=== PATIENT | male | born 1975 | race Caucasian/White ===

== ENCOUNTER 2019-07-02 08:22 | Outpatient (CLI) | payer OTHER ==
--- NOTE | 2019-07-02 11:17 | MRI ---
MRI CERVICAL SPINE: Date: 07/02/2019 INDICATION: Cervical pain. FINDINGS: Cervical vertebra maintain normal height and alignment. Mild degenerative changes are present. Mild a nterior spurring. Mild loss of disc space at C5-6. The other disc spaces are relatively well preserv ed. C2-3: No significant disc bulge or spondylosis. C3-4: Mild disc bulge and spondylosis efface the anterior subarachnoid space. Asymmetric disc bulge and uncinate hypertrophy on the right produce right foraminal stenosis. C4-5: Posterior disc bulge and spondylosis abut the anterior cord. There is asymmetric spondylosis p aracentrally on the left which indents the anterior cord on the left and produces left foraminal sten osis. Uncinate hypertrophy also results in right foraminal stenosis at this level. C5-6: Posterior disc bulge and spondylosis efface the anterior subarachnoid space. Bilateral foramin al narrowing due to facet and uncinate hypertrophy, more pronounced on the right. C6-7: Disc bulge and spondylosis efface the anterior subarachnoid space. Uncinate hypertrophy result s in mild bilateral foraminal narrowing. The cervical cord signal is normally preserved. IMPRESSION: Multilevel degenerative changes. Posterior disc bulge and spondylosis most pronounced at the C3-4, C4 -5, C5-6, and C6-7 levels as detailed above. POS: [facility]
== END 2019-07-02 08:23 | disposition home or self-care (01) ==
LOC: BICMRI 08:22
PROVIDERS: ATTEND Specialist
DX: M54.2 Cervicalgia (principal); M47.812 Spondylosis without myelopathy or radiculopathy, cervical region; M50.81 Other cervical disc disorders, high cervical region
CPT/HCPCS: 72141

== ENCOUNTER 2019-08-25 11:16 | Outpatient (CLI) | payer OTHER ==
--- NOTE | 2019-08-25 13:53 | RAD ---
CERVICAL SPINE: 08/25/19 Five views. INDICATIONS: Neck pain. Cervical vertebrae maintain height and alignment. Multilevel degenerative change noted. Loss of disc space at C3-4, C4-5, C5-6 and C6-7. Mild to moderate osteophytes from these levels with posterior spo ndylosis at C3-4, C4-5, C5-6 and C6-7. No significant listhesis see with flexion or extension. IMPRESSION: Multilevel degenerative disc changes as described. Findings correlate to the recent MRI of 07/02/19. POS: [facility]
== END 2019-08-25 11:17 | disposition home or self-care (01) ==
LOC: BICRAD 11:16
PROVIDERS: ATTEND Neurological Surgery
DX: M50.10 Cervical disc disorder with radiculopathy, unspecified cervical region (principal)
CPT/HCPCS: 72050

== ENCOUNTER 2019-09-21 08:18 | Outpatient (CLI) | payer OTHER ==
--- NOTE | 2019-09-21 11:59 | MRI ---
MRI OF THE LEFT SHOULDER WITHOUT CONTRAST: INDICATION: History of left rotator cuff tear. COMPARISON: Left humerous radiographs dated 08/26/2019. FINDINGS: There is a massive rotator cuff tear involving the supraspinatus and infraspinatus with retraction o f the supraspinatus and infraspinatus tendons to the level of the glenohumeral joint. There is promi nent muscular edema involving the supraspinatus and infraspinatus as well as the cranial subscapulari s. There is a tear component involving the cranial aspect of the subscapularis and rotator interval from the supraspinatus with medial subluxation of the long head of the biceps tendon. There is a par tial-thickness split tear involving the intraarticular long head of the biceps tendon with reconstitu tion by the level of the mid to distal bicipital groove. The biceps anchor complex appears intact. The superior glenoid labrum appears intact. The anterior inferior glenohumeral labral ligamentous co mplex appears intact. Glenohumeral articular surface is normal-appearing. There is a degenerative s ubchondral cyst-like abnormality involving the bare are of the superior humeral head. There is mild AC joint osteoarthrosis with mild encroachment of the subjacent supraspinatus. No enlarged lymph nod es are evident. There is a type II acromion. No os acromiale is evident. IMPRESSION: 1. Massive rotator cuff tear with supraspinatus and infraspinatus tendon retraction of the glenohume ral joint. There is also some tear extension into the rotator interval and cranial aspect of the sub scapularis inducing medial subluxation of the long head of the biceps tendon. There is a split tear of the long head of the biceps tendon along its intraarticular and proximal bicipital groove course. 2. No evidence to suggest superior glenoid labral or biceps anchor tear. 3. Mild acromioclavicular joint osteoarthrosis with mild encroachment. 4. Mild likely posttraumatic myositis of the cranial subscapularis, supraspinatus, and infraspinatus . Component of acute denervation is not excluded. POS: [facility]
== END 2019-09-21 08:19 | disposition home or self-care (01) ==
LOC: BICMRI 08:18
PROVIDERS: ATTEND Orthopaedic Surgery
DX: M75.102 Unspecified rotator cuff tear or rupture of left shoulder, not specified as traumatic (principal); M19.012 Primary osteoarthritis, left shoulder

== ENCOUNTER 2019-09-27 05:41 | Outpatient (CLI) | payer OTHER ==
[2019-09-27 12:14] LABS: #Eosinphils 0.2 thou/uL (0.0-0.7); #Lymphocytes 2.1 thou/uL (1.20-3.40); #Monocytes 0.7 thou/uL (0.11-0.59); #Neutrophils 5.1 thou/uL (1.40-6.50); %Basophils 0.5 % (0.0-1.0); %Eosinophils 2.2 % (0.0-10.0); %Lymphocytes 25.8 % (21.0-51.0); %Monocytes 8.2 % (0.0-10.0); %Neutrophils 63.3 % (42.0-75.0); Hemoglobin 14.9 g/dL (14.0-18.0); Mean Corpuscular HGB CONC 33.3 g/dL (32.0-36.0); Mean Corpuscular Hemoglobin 29.5 pg (27.0-31.0); Mean Corpuscular Volume 88.5 fL (78.0-98.0); Mean Platelet Volume 7.6 fL (7.4-10.4); Platelet Count 218 thou/uL (130-400); RBC Distribution Width 11.7 % (11.5-14.5); Red Blood Cell (RBC) Count 5.06 mill/uL (4.70-6.10); White Blood Cell (WBC) Count 8.1 thou/uL (4.8-10.8)
[2019-09-27 12:36] LABS: Anion Gap 11 mmol/L (10-20); BUN (Urea Nitrogen) 16 mg/dL (8.9-20.6); Calc. Creatinine Clearance 0 mL/min (70-130); Carbon Dioxide 24 mmol/L (22-29); Chloride 106 mmol/L (98-107); Estimated GFR-MDRD Greater than 90; Glucose 97 mg/dL (70-105); Potassium 4.8 mmol/L (3.5-5.1); Sodium 136 mmol/L (136-145)
[2019-09-28 13:09] LABS: SARS-CoV-2 MS2 Positive; SARS-CoV-2 N Gene Negative; SARS-CoV-2 S Gene Negative; SARS-CoV-2 orf1ab Negative
== END 2019-09-27 05:42 | disposition home or self-care (01) ==
LOC: LABBT 05:41
PROVIDERS: ATTEND Orthopaedic Surgery
DX: Z01.812 Encounter for preprocedural laboratory examination (principal); Z11.59 Encounter for screening for other viral diseases; M75.122 Complete rotator cuff tear or rupture of left shoulder, not specified as traumatic
CPT/HCPCS: 80048; 85025; 87635; U0003

== ENCOUNTER 2019-09-30 05:42 | Day surgery (SDC) | payer OTHER ==
[2019-09-24 09:33] VITALS: BMI 31.1
[2019-09-30] MEDS ORDERED: Midazolam HCl 2 mg/2 ml Vial ONE (06:46)
[2019-09-30] MEDS ORDERED: Fentanyl 100 MCG/2 ML VIAL ONE ×2 (06:46→07:13)
[2019-09-30] MEDS ORDERED: Ondansetron PF 4 MG/2 ML Vial IVP PRN (07:35)
[2019-09-30] MEDS ORDERED: HYDROcodone/Acetaminophen 5/325 mg Tablet PO PRN ×2 (07:35)
[2019-09-30] MEDS ORDERED: Zolpidem Tartrate 5 MG TAB PO PRN (07:35)
[2019-09-30] MEDS ORDERED: Promethazine HCl 25 MG/ML VIAL IM PRN (07:35)
[2019-09-30] MEDS ORDERED: Ropivacaine 0.2% 550 ML 550 ML NERVE BLCK SCH (07:35)
[2019-09-30] MEDS ORDERED: traMADol HCl 50 MG TAB PO PRN ×2 (07:35)
[2019-09-30] MEDS ORDERED: Fentanyl 100 MCG/2 ML VIAL SLOW IVP PRN (07:35)
--- NOTE | 2019-09-30 10:41 | OP ---
DATE OF PROCEDURE: 09/30/2019 This is Arya Moreno PA-C dictating a report for Douglas Maza MD. PREOPERATIVE DIAGNOSIS: Left shoulder massive retracted rotator cuff tear with biceps tendinosis and instability. POSTOPERATIVE DIAGNOSIS: Left shoulder massive retracted rotator cuff tear with biceps tendinosis and instability. PROCEDURES PERFORMED: 1. Open acromioplasty. 2. Biceps tenodesis. 3. Primary open rotator cuff repair of supraspinatus and infraspinatus tendons. RECOVERY ROOM NURSE: Arya Moreno PA-C ANESTHESIA: General via endotracheal tube, augmented with indwelling interscalene block on the left. COMPONENTS USED: Arthrex biceps tenodesis screw, 7 x 23 bioabsorbable; a 5.5 metallic suture anchor, double-armed x2; and a SwiveLock BioComposite punch x2. ESTIMATED BLOOD LOSS: Less than 50. FINDINGS: Large retracted supraspinatus and infraspinatus rotator cuff tear, acromial spurring, and instability of the biceps tendon with subluxation and tendinosis. DRAINS: None. SPECIMENS: None. COMPLICATIONS: None. COUNTS: Correct. INDICATIONS FOR SURGERY: Mk is a 44-year-old male who has had progressive left shoulder pain and problem with working overhead for the last 3 to 4 months. He has failed conservative management. An MRI has demonstrated a retracted massive rotator cuff tear and he has elected to proceed with open primary repair of this as definitive treatment of this problem. PROCEDURE IN DETAIL: After informed consent was obtained in the preoperative holding area, the patient was taken to the operative suite where general anesthesia was induced and an endotracheal tube was placed and secured. The left upper extremity was then prepped and draped in the usual sterile fashion. Prior to incision, a time-out was called. All members of the surgical team agreed upon site, surgery, and the patient. Once that was completed, we chose a lateral incision directly over the acromion, approximately 3 fingerbreadths below the acromial spur. Bleeding was controlled with Bovie electrocautery. Exposure was maintained and subperiosteal dissection was carried out along the acromion to expose it fully, which demonstrated a large spur. After this completed, we used the osteotome and rongeur to remove the acromial spur and improve vision. After this, we identified the extent of the massive retracted tear both anteriorly and posteriorly. Decortication was carried out along the chondral margin of the torn prior footprint with Bovie, curette, and rongeur. Good bleeding bone was encountered and established. We then used two 5.5 double suture arm anchors, placed our Miguel-Duglas stitches horizontally along the margin with good footprint. These were then tied sequentially from back to front and then we used 2 suture anchors to establish a 2nd fixation point, resulting in a nice footprint and double row technique. Happy with our fixation. We then turned our attention to biceps tenodesis, which was performed with the Arthrex Bio-Tenodesis screw with a good proximal biceps footprint established with an interference fixation of an 8 mm screw. Happy with finish and fixation, which was appeared to be watertight along the cuff margin and subscapularis. Copious irrigation was carried out. Primary repair of the deltoid was accomplished with interrupted 0 Ethibonds. The deltoid was then reapproximated with a running 0 Vicryl stitch. Subcutaneous layer was closed with interrupted inverted mattress simple Vicryl stitches and 2-0 Vicryl was used to reapproximate the subcuticular layer, and stainless steel hellen were used to reapproximate the skin. Sterile dressing was applied. Procedure was terminated without complications. The patient was extubated in the operative suite, taken to recovery room in stable condition. Job ID: [id number]
[2019-09-30] MEDS ORDERED: Dexamethasone 20 MG/5 ML VIAL ONE (14:40)
[2019-09-30] MEDS ORDERED: Lidocaine 1% PF 5 ML VIAL ONE (14:40)
[2019-09-30] MEDS ORDERED: PROPOFOL 200 MG/20 ML VIAL ONE (14:40)
[2019-09-30] MEDS ORDERED: Rocuronium Bromide 10 MG/ML (10ML VIAL) ONE (14:40)
[2019-09-30] MEDS ORDERED: Ondansetron PF 4 MG/2 ML Vial ONE (14:40)
[2019-09-30] MEDS ORDERED: Ketorolac Tromethamine 30 MG/ML VIAL ONE (14:40)
[2019-09-30] MEDS ORDERED: Ropivacaine 0.2% HCl/PF (40 MG/20 ML VIAL) ONE (14:48)
[2019-09-30] MEDS ORDERED: Ropivacaine 0.5% HCl/PF (150 MG/30 ML VIAL) ONE (14:48)
== END 2019-09-30 11:25 | disposition home or self-care (01) ==
LOC: SDC 05:42
PROVIDERS: ATTEND Orthopaedic Surgery
PROC: 0LQ20ZZ Repair Left Shoulder Tendon, Open Approach (ICD-10-PCS; principal; 2019-09-30)
PROC: 0LS40ZZ Reposition Left Upper Arm Tendon, Open Approach (ICD-10-PCS; principal; 2019-09-30)
PROC: 3E0T3BZ Introduction of Anesthetic Agent into Peripheral Nerves and Plexi, Percutaneous Approach (ICD-10-PCS; principal; 2019-09-30)
DX: M75.122 Complete rotator cuff tear or rupture of left shoulder, not specified as traumatic (principal); G89.18 Other acute postprocedural pain
CPT/HCPCS: A4306; C1713; J0690; J1100; J1885; J2001; J2250; J2405; J2704; J2795; J3010

== ENCOUNTER 2019-10-01 03:05 | Observation (INO) | payer OTHER ==
[2019-10-01] MEDS ORDERED: Ketorolac Tromethamine 30 MG/ML VIAL ONE ×2 (03:40→04:36)
[2019-10-01] MEDS ORDERED: Ropivacaine 0.2% HCl/PF 20 ML ONE (03:54)
[2019-10-01] MEDS ORDERED: Naloxone HCl 0.4 mg/ml Vial IV PRN (04:22)
[2019-10-01] MEDS ORDERED: diphenhydrAMINE 25 MG CAP PO PRN (04:22)
[2019-10-01] MEDS ORDERED: Zolpidem Tartrate 5 MG TAB PO PRN (04:22)
[2019-10-01] MEDS ORDERED: diphenhydrAMINE 50 MG/ML VIAL IM PRN (04:22)
[2019-10-01] MEDS ORDERED: Promethazine HCl 25 MG/ML VIAL IM PRN (04:22)
[2019-10-01] MEDS ORDERED: diphenhydrAMINE 50 MG/ML VIAL IVP PRN (04:22)
[2019-10-01] MEDS ORDERED: Ondansetron PF 4 MG/2 ML Vial IVP PRN (04:22)
[2019-10-01] MEDS ORDERED: Morphine CADD 1 MG/ML CADD IVPB PRN (04:22)
[2019-10-01] MEDS ORDERED: Communication Order-Pharmacy FS PRN (04:30)
[2019-10-01] MEDS ORDERED: HYDROcodone/Acetaminophen 5/325 mg Tablet ONE (04:36)
--- NOTE | 2019-10-01 08:10 | HP ---
This is Arya Moreno PA-C dictating a report for Douglas Maza MD. CHIEF COMPLAINT: Left shoulder pain. HISTORY OF PRESENT ILLNESS: Anthony is a 44-year-old male who is postop day 1 from a left open rotator cuff tear primary repair. He underwent the procedure yesterday morning and was discharged home and apparently his peripheral indwelling block was not accomplishing the expected pain control. Therefore, early this morning, he presented to the emergency room for intractable pain in the left shoulder. He has had some nausea secondary to the discomfort and the Tylenol No.3 he was discharged home, was inadequate for pain control. PAST MEDICAL HISTORY: Negative. He is seeing his doctor Pedro Amaya for primary care. No history of blood pressure is noted. Tetanus is up to date. PAST SURGICAL HISTORY: Left open rotator cuff repair from a recent fall. MEDICATIONS: Tylenol No. 3 and ibuprofen. ALLERGIES: NO KNOWN DRUG ALLERGIES. DENIES ANY CONTACT ALLERGIES. SOCIAL HISTORY: He denies any ethanol, tobacco, or illicit drug abuse. He is and operates a ranch. PHYSICAL EXAMINATION: HEAD: Normocephalic, atraumatic. Pupils equally round, reactive to light. Oropharynx benign. CHEST: Clear to auscultation. HEART: Regular rate and rhythm. ABDOMEN: Soft, benign. EXTREMITIES: No clubbing, cyanosis, or edema. He has full digital excursion of left hand. Range of motion is not assessed due to known underlying recent operation of the left rotator cuff. He has good milligan pinch and strength. The upper extremity will be reassessed later today to identify if there are any focal deficits due to the fact that he recently had a bolus placed and his peripheral block. No drainage is noted. No strike through is noted from the left shoulder. IMPRESSION: 1. Intractable pain, left shoulder. 2. Recent open primary rotator cuff repair with poor pain control. PLAN: 1. The patient will be admitted to the hospital for pain control. 2. Consult Anesthesia for BUNCH TRIMMER MOLD placement. 3. Re-evaluate today and keep him overnight for observation. Plan for discharge tomorrow once he is tolerating oral medications and he has adequate pain control with this. Consider discontinuing block. Job ID: [id number]
[2019-10-01] MEDS ORDERED: Morphine Sulfate 100 MG in Dextrose 5% in Water 98 ML IV SCH (08:25)
[2019-10-01 08:50] VITALS: BMI 31.1
[2019-10-01] MEDS ORDERED: Bupivacaine HCl 0.5%/Epinephrine 1:200,000/PF 30 ml Vial ONE (10:24)
[2019-10-01] MEDS ORDERED: Acetaminophen 500 MG TAB PO SCH (10:45)
[2019-10-01] MEDS ORDERED: traMADol HCl 50 MG TAB PO PRN (22:47)
[2019-10-01] MEDS ORDERED: Bupivacaine PF 0.5% 30 ML VIAL ONE (22:59)
[2019-10-01] MEDS ORDERED: Dexamethasone 20 MG/5 ML VIAL ONE (23:00)
[2019-10-01] MEDS ORDERED: traMADol HCl 50 MG TAB PO SCH (23:00)
[2019-10-02 07:47] VITALS: BP 142/83; TEMP 98.2
[2019-10-02] MEDS ORDERED: Prevnar 13-Val Conj/PF 0.5 ML SYRINGE IM ONE (09:00)
--- NOTE | 2019-10-04 11:19 | DIS ---
DATE OF ADMISSION: 10/01/2019 DATE OF DISCHARGE: 10/02/2019 ADMISSION DIAGNOSIS: Intractable pain. DISCHARGE DIAGNOSIS: Intractable pain. DISCHARGE DISPOSITION: To home. OPERATIVE PROCEDURE: Peripheral block placement by Anesthesia. CONSULTANTS: [facility]. BRIEF CLINICAL HISTORY: Mk is a 44-year-old male who was admitted to [facility] a day after he had an open rotator cuff repair. His pain became intractable. Therefore, he presented to the emergency room, was admitted by our service and kept overnight for pain control and observation. Anesthesia service line was consulted and a new block was placed. The patient received 100% pain control and was happy. He did spend the night just to be sure. At the time of discharge, he is afebrile, he is ambulatory without assistance, tolerating regular diet, voiding without difficulty. His pain is controlled with oral medications. DISCHARGE MEDICATIONS: Tramadol. We will be happy to see the patient on an as-needed basis between now and his next scheduled appointment. CONDITION ON DISCHARGE: Stable. PROGNOSIS: Good. Job ID: [id number]
== END 2019-10-02 10:03 | disposition home or self-care (01) ==
LOC: ERS 03:05 → SJJU 06:37
PROVIDERS: ADMIT Orthopaedic Surgery; ATTEND Orthopaedic Surgery
PROC: 3E0T3BZ Introduction of Anesthetic Agent into Peripheral Nerves and Plexi, Percutaneous Approach (ICD-10-PCS; principal; 2019-10-02)
DX: G89.18 Other acute postprocedural pain (principal); M25.512 Pain in left shoulder; Z98.890 Other specified postprocedural states
CPT/HCPCS: 96372; 96374; 96375; G0378; J0670; J1100; J1885; J2270; J2405; J2795; J7070; S0020

== ENCOUNTER 2019-12-27 02:12 | Observation (INO) | payer OTHER ==
[2019-12-27] MEDS ORDERED: Morphine 4 MG/ML VIAL ONE (02:23)
[2019-12-27] MEDS ORDERED: Ondansetron PF 4 MG/2 ML Vial ONE ×2 (02:23→08:53)
[2019-12-27 02:52] LABS: #Eosinphils 0.1 thou/uL (0.0-0.7); #Lymphocytes 1.8 thou/uL (1.20-3.40); #Neutrophils 10.4 thou/uL (1.40-6.50); %Basophils 0.1 % (0.0-1.0); %Lymphocytes 13.4 % (21.0-51.0); %Monocytes 7.5 % (0.0-10.0); Hemoglobin 15.4 g/dL (14.0-18.0); Mean Corpuscular HGB CONC 35.6 g/dL (32.0-36.0); Mean Corpuscular Volume 86.9 fL (78.0-98.0); Mean Platelet Volume 7.7 fL (7.4-10.4); Platelet Count 199 thou/uL (130-400); RBC Distribution Width 12.1 % (11.5-14.5); Red Blood Cell (RBC) Count 4.96 mill/uL (4.70-6.10); White Blood Cell (WBC) Count 13.4 thou/uL (4.8-10.8)
[2019-12-27] MEDS ORDERED: Piperacillin/Tazobactam 4.5 GM VIAL ONE (03:03)
[2019-12-27 03:11] LABS: ALT (SGPT) 22 U/L (8-55); AST (SGOT) 15 U/L (5-34); Albumin 4.5 g/dL (3.5-5.0); Alkaline Phosphatase 68 U/L (40-110); Anion Gap 13 mmol/L (10-20); BUN (Urea Nitrogen) 11 mg/dL (8.9-20.6); Bilirubin, Total 0.9 mg/dL (0.2-1.2); Calc. Creatinine Clearance 0 mL/min (70-130); Calcium 8.9 mg/dL (7.8-10.44); Carbon Dioxide 22 mmol/L (22-29); Chloride 105 mmol/L (98-107); Estimated GFR-MDRD 82; Globulin 2.6 g/dL (2.4-3.5); Glucose 119 mg/dL (70-105); Lipase 21 U/L (8-78); Potassium 3.9 mmol/L (3.5-5.1); Protein, Total 7.1 g/dL (6.0-8.3); Sodium 136 mmol/L (136-145)
[2019-12-27 03:36] LABS: Bacteria/HPF None Seen HPF (None Seen); Bilirubin Negative (Negative); Blood, Urine Trace (Negative); Clarity Clear (Clear); Glucose, Urine (Dipstick) Normal (Negative); Ketone, Urine Negative (Negative); Leukocyte Negative Leu/uL (Negative); Nitrite Negative (Negative); Protein, Urine (Dipstick) Negative (Neg-Trace); Squamous Epithelial None Seen HPF (0-3); Urobilinogen Normal mg/dL (Less than 2); WBC/HPF 0-3 HPF (0-3); pH, Urine 6.5 (5.0-9.0)
[2019-12-27 04:29] VITALS: BMI 30.4
[2019-12-27] MEDS ORDERED: Sodium Chloride 0.9% 1,000 ML IV SCH (04:39)
[2019-12-27] MEDS ORDERED: Ondansetron ODT 4 MG TAB SL PRN (04:39)
[2019-12-27] MEDS ORDERED: Ondansetron PF 4 MG/2 ML Vial IVP PRN (04:39)
[2019-12-27] MEDS ORDERED: Morphine 4 MG/ML VIAL SLOW IVP PRN (04:40)
[2019-12-27] MEDS ORDERED: Acetaminophen 500 MG TAB PO PRN (06:23)
[2019-12-27] MEDS ORDERED: Ketorolac Tromethamine 30 MG/ML VIAL IVP PRN (06:24)
[2019-12-27] MEDS ORDERED: Fentanyl 100 MCG/2 ML VIAL SLOW IVP PRN (06:24)
[2019-12-27] MEDS ORDERED: Ketorolac Tromethamine 30 MG/ML VIAL IVP SCH (06:30)
[2019-12-27] MEDS ORDERED: Acetaminophen 500 MG TAB PO SCH (06:30)
--- NOTE | 2019-12-27 07:51 | CT ---
PRELIMINARY REPORT/[facility]/EMERGENCY AFTER HOURS PROCEDURE: Receipt of this report by the clinical staff was confirmed with Andrés Smith DO by Lynda Boateng on Se 2019 03:13:00 CDT. Addendum electronically signed by Lynda Boateng on December 27, 2019 3:14:21 AM CDT EXAM: CT Abdomen and Pelvis with Intravenous Contrast CLINICAL HISTORY: 44-year-old male presents ED for evaluation of periumbilical pain migrating to his right lower quadrant is been gradually worsening throughout the course of the day. Patient states anorexia in association but no vomiting or diarrhea. Patient states a fever of 100.6 at home about an hour and half prior to arrival. Patient still has appendix, no history of kidney stones. No sick contacts at home. TECHNIQUE: Axial computed tomography images of the abdomen and pelvis with intravenous contrast. CONTRAST: With; ISOVUE 370,100mL COMPARISON: None provided. FINDINGS: LUNG BASES: No basilar airspace consolidation or pleural effusion. LIVER: Unremarkable. GALLBLADDER AND BILE DUCTS: Unremarkable. No calcified stone. No ductal dilation. PANCREAS: Unremarkable. SPLEEN: Unremarkable. ADRENAL GLANDS: Unremarkable. KIDNEYS, URETERS, AND BLADDER: Thickening of the urinary bladder which is likely due to under distent ion. STOMACH AND BOWEL: Scattered colonic diverticuli are present without evidence of diverticulosis. APPENDIX: The appendix is fluid-filled and dilated measuring up to 1.2 cm. There is a 0.7 cm appendic olith at the base. There is mucosal hyperenhancement and periappendiceal free fluid and inflammatory changes compatible with acute appendicitis. PERITONEUM: No free air. LYMPH NODES: No lymphadenopathy. REPRODUCTIVE: Unremarkable as visualized. VASCULATURE: No aortic aneurysm. BONES: Mild degenerative changes at L5/S1. ABDOMINAL WALL AND SOFT TISSUES: Unremarkable. IMPRESSION: Findings compatible with acute appendicitis with a 0.7 cm appendicolith at the base of th e appendix. ELECTRONICALLY SIGNED BY: Mechelle Abreu MD Dec 27, 2019 3:05:03 AM CDT FINAL REPORT: CT ABDOMEN AND PELVIS WITH IV CONTRAST: HISTORY: Periumbilical abdominal pain with migration of pain to right lower quadrant. Anorexia. Fever. COMPARISON: 08/26/2019 IMPRESSION: 1. Acute appendicitis with an approximately 7 mm appendicolith in the proximal appendix. The appendix measures approximately 14 mm in diameter with periappendiceal inflammatory changes seen. 2. Colonic diverticulosis. 3. Remote incompletely imaged fracture involving lateral left seventh rib. 4. Findings are in agreement with the preliminary report by [facility]. Transcribed Date/Time: 12/27/2019 8:49 AM
[2019-12-27] MEDS ORDERED: Bupivacaine PF 0.5% 30 ML VIAL ONE (08:34)
[2019-12-27] MEDS ORDERED: Lidocaine 1% w/Epinephrine 1:100K 20 ML VIAL ONE (08:34)
[2019-12-27] MEDS ORDERED: Fentanyl 100 MCG/2 ML VIAL ONE ×3 (08:42→10:49)
[2019-12-27] MEDS ORDERED: SUGAMMADEX SODIUM 500 MG/5 ML VIAL ONE (08:42)
[2019-12-27] MEDS ORDERED: Piperacillin/Tazobactam 3.375 GM VIAL ONE (08:51)
[2019-12-27] MEDS ORDERED: Sodium Chloride 0.9% 100 ML ONE (08:51)
[2019-12-27] MEDS ORDERED: Rocuronium Bromide 10 MG/ML (10ML VIAL) ONE (08:53)
[2019-12-27] MEDS ORDERED: Succinylcholine Chloride 20 MG/ML 10 ml SYRINGE FS ONE (08:53)
[2019-12-27] MEDS ORDERED: PROPOFOL 200 MG/20 ML VIAL ONE (08:53)
[2019-12-27] MEDS ORDERED: Metoclopramide HCl 10 MG/2 ML VIAL ONE (08:53)
[2019-12-27] MEDS ORDERED: Lidocaine 1% PF 5 ML VIAL ONE (08:53)
[2019-12-27] MEDS ORDERED: Ibuprofen 600 MG TAB PO PRN (08:56)
[2019-12-27] MEDS ORDERED: traMADol HCl 50 MG TAB PO PRN ×2 (08:56)
[2019-12-27] MEDS ORDERED: hydrALAZINE 20 MG/ML VIAL ONE (10:43)
--- NOTE | 2019-12-27 10:51 | HP ---
HISTORY OF PRESENT ILLNESS: Mk Valdez is a 44-year-old [facility] , had acute onset of pain in upper abdomen yesterday, localizing right lower quadrant, suffered anorexia and nausea. The pain is worse with movement. He presented to the emergency room. White count was slightly elevated at 13,000. CMP, CBC otherwise normal. He underwent a CAT scan of the abdomen and pelvis confirming findings consistent with clinical exam and history of acute appendicitis. He had a fecalith. He had colonic diverticulosis, otherwise unremarkable. ALLERGIES: SKIN PREP FOR SHOULDER SURGERY LAST YEAR BY DR. SMITH. SUBJECTIVE: Tobacco, none. Alcohol, rarely. MEDICATIONS: None routinely. PAST SURGICAL HISTORY: Left shoulder surgery. PAST MEDICAL HISTORY: Noncontributory. REVIEW OF SYSTEMS: Noncontributory. FAMILY HISTORY: Noncontributory. PHYSICAL EXAMINATION: VITAL SIGNS: 6 feet tall, 224 pounds, 30 BMI. 98.4, 69, 189/111. HEAD, EARS, EYES, NOSE, AND THROAT: Unremarkable. LUNGS: Clear to auscultation. CARDIAC: Regular rate and rhythm without murmur or gallop. ABDOMEN: Soft. Tenderness in right lower quadrant guarding, rebound at McBurney's point. EXTREMITIES: Unremarkable. No ankle edema. LABORATORY DATA: As noted above. ASSESSMENT AND PLAN: Acute appendicitis. We will recommend laparoscopic video appendectomy. Risks of infection, bleeding, reoperation, open operation discussed, questions answered. We will plan that today and discharge later today. Job ID: [id number]
[2019-12-27] MEDS ORDERED: Piperacillin/Tazobactam 4.5 GM in Sodium Chloride 0.9% 100 ML IVPB SCH ×2 (11:00→12:00)
[2019-12-27 12:02] LABS: SARS-CoV-2 MS2 Positive; SARS-CoV-2 N Gene Negative; SARS-CoV-2 S Gene Negative; SARS-CoV-2 by NAA Not Detected (NotDetected); SARS-CoV-2 orf1ab Negative
[2019-12-27] MEDS ORDERED: Ondansetron HCl/PF 4 MG/2 ML Vial IVP PRN (13:05)
[2019-12-27] MEDS ORDERED: Promethazine HCl 25 MG/ML VIAL IM/IV PRN (13:05)
[2019-12-27] MEDS ORDERED: Non-Formulary Medication 1 EACH PO PRN (13:05)
[2019-12-27 16:05] VITALS: BP 135/83; TEMP 98.3
--- NOTE | 2019-12-27 19:28 | OP ---
DATE OF PROCEDURE: 12/27/2019 PREOPERATIVE DIAGNOSIS: Acute appendicitis. POSTOPERATIVE DIAGNOSIS: Acute appendicitis. PROCEDURE PERFORMED: Laparoscopic video appendectomy. ANESTHESIA: General, local 0.5% Marcaine 30 mL mixed with 1% Xylocaine with epinephrine 20 mL, total volume used. PROCEDURE: Laparoscopic video appendectomy. Note, the appendix was acutely inflamed. It fractured in half during the dissection. It was removed in two bags. Although there was no purulence and only a fecalith evacuated, the patient was sent home with five days of antibiotics. DESCRIPTION OF PROCEDURE: The patient was taken to the operating room, where he underwent general anesthesia. The abdomen was clipped of hair, prepared with ChloraPrep and draped in routine fashion. Local anesthetic was infiltrated in the skin and subcutaneous tissue about each port site. Patient voided right before the operation. Thus, a Roberson catheter was not placed. Infraumbilical incision was made, pneumoperitoneum to 15 mmHg was obtained with a Veress needle, replaced with a 5 port laparoscope inserted. Right lateral subcostal incision made and 5 port placed. Suprapubic incision made, a 12 port placed under laparoscopic visualization. Appendix acutely inflamed requiring mobilization of the terminal ileum and cecum. The appendix was grasped, dissected free, dividing the mesentery with the LigaSure. It fractured in half. This portion of the appendix placed in endobag and the fecalith removed and area irrigated, irrigant evacuated. The remainder of the appendix dissected free down the stump of the appendix which was divided with Endo FRANCHESKA blue load staple. Stapled cecal stump. Hemostasis gained with clips. Good hemostasis noted. Remainder of the appendix placed in a second endobag and removed. Abdominal cavity, pericecal area, pelvis, right gutter irrigated with 2.5 L of saline solution, irrigant evacuated, good hemostasis noted. Irrigant and pneumoperitoneum evacuated. All instruments were removed after suprapubic fascia was approximated with 0 Vicryl GraNee needle. All skin incisions approximated with subdermal 4-0 Monocryl and [place] glue applied. Job ID: [id number]
[2019-12-27] MEDS ORDERED: Amoxicillin/Potassium Clav 875 MG TAB PO SCH (21:00)
--- NOTE | 2019-12-28 09:01 | DIS ---
DATE OF ADMISSION: 12/27/2019 DATE OF DISCHARGE: 12/27/2019 DISCHARGE DIAGNOSIS: Acute appendicitis. PROCEDURE: Laparoscopic video appendectomy. CAT scan of the abdomen and pelvis noted, consistent with appendicitis. DISCHARGE MEDICATIONS: Patient was discharged home on Augmentin for 5 days. Tylenol and Advil [id number] for pain, Ultram #25, 1 refill as needed. HISTORY: 44-year-old male, presented with acute appendicitis. History and exam consistent with CAT scan confirmed. Received intravenous antibiotics and fluids. Taken to operating room at 9 o'clock in the morning of admission and appendectomy performed postoperatively. He did well. Discharged home. Diet and activity as tolerated. No lifting restrictions. Follow up in my office in 2 to 3 weeks. Job ID: [id number]
== END 2019-12-27 16:54 | disposition home or self-care (01) ==
LOC: ERS 02:12 → INTOOBSV 03:18 → SURG A 03:18
PROVIDERS: ADMIT Specialist; ATTEND Specialist
PROC: 0DTJ4ZZ Resection of Appendix, Percutaneous Endoscopic Approach (ICD-10-PCS; principal; 2019-12-27)
DX: K35.30 Acute appendicitis with localized peritonitis, without perforation or gangrene (principal); K38.1 Appendicular concretions; K57.30 Diverticulosis of large intestine without perforation or abscess without bleeding; Z91.048 Other nonmedicinal substance allergy status; Z20.828 Contact with and (suspected) exposure to other viral communicable diseases
CPT/HCPCS: 74177; 80053; 81003; 81015; 83690; 85025; 87635; 88304; 96365; 96375; G0378; J0360; J1885; J2270; J2405; J2543; J2704; J2765; J3010; J3490; S0020; U0003

== ENCOUNTER 2020-01-05 12:23 | Inpatient (IN) | payer OTHER ==
[2020-01-05 12:57] LABS: Hemoglobin 14.5 g/dL (14.0-18.0); Mean Corpuscular HGB CONC 32.4 g/dL (32.0-36.0); Mean Corpuscular Hemoglobin 28.9 pg (27.0-31.0); Mean Corpuscular Volume 89.1 fL (78.0-98.0); Mean Platelet Volume 6.8 fL (7.4-10.4); Platelet Count 350 thou/uL (130-400); Red Blood Cell (RBC) Count 5.03 mill/uL (4.70-6.10); White Blood Cell (WBC) Count 21.4 thou/uL (4.8-10.8)
[2020-01-05] MEDS ORDERED: Piperacillin/Tazobactam 4.5 GM VIAL ONE (13:08)
[2020-01-05] MEDS ORDERED: Fentanyl 100 MCG/2 ML VIAL ONE ×2 (13:10→15:05)
[2020-01-05 13:18] LABS: Band 12 % (5-11); Lymphocytes 10 % (21-51); MDiff Complete? YES; Monocytes 5 % (0-10); Neutrophil 72 % (42-75); Platelet Morphology Comment Appears Adequate; Polychromasia SLIGHT = 2-3 cells (100X) (0-2/hpf); Reactive Lymphocytes 1 % (0-10)
--- NOTE | 2020-01-05 13:18 | RAD ---
Exam: Chest one view HISTORY:Chest pain. Comparison: None FINDINGS: Cardiac silhouette: Normal Aorta: Unremarkable Pulmonary vessels: Normal Costophrenic angles: Clear LUNGS: No masses or consolidation. Pneumothorax: None Osseous abnormalities: None IMPRESSION: No acute cardiopulmonary process.
[2020-01-05 13:21] LABS: ALT (SGPT) 36 U/L (8-55); AST (SGOT) 20 U/L (5-34); Albumin 4.2 g/dL (3.5-5.0); Alkaline Phosphatase 107 U/L (40-110); Anion Gap 16 mmol/L (10-20); BUN (Urea Nitrogen) 17 mg/dL (8.9-20.6); Bilirubin, Total 0.9 mg/dL (0.2-1.2); Calc. Creatinine Clearance 0 mL/min (70-130); Calcium 9.5 mg/dL (7.8-10.44); Carbon Dioxide 22 mmol/L (22-29); Chloride 99 mmol/L (98-107); Estimated GFR-MDRD 76; Globulin 3.8 g/dL (2.4-3.5); Glucose 98 mg/dL (70-105); Potassium 4.2 mmol/L (3.5-5.1); Sodium 133 mmol/L (136-145)
--- NOTE | 2020-01-05 15:32 | CT ---
EXAM: CT ABDOMEN AND PELVIS HISTORY: Appendectomy last Friday. Fever. COMPARISON: 01/05/2020 Procedure: Multiple contiguous axial images were obtained and a CT of the abdomen and pelvis with IV contrast. C oronal reformats were performed. FINDINGS: Lower Chest: within normal limits. Vessels: Normal caliber aorta Heart: Normal heart size Abdomen: Portal vein:Limited evaluation due to timing of bolus. Gallbladder: No calcified gallstones. Normal caliber wall. Liver: within normal limits. Pancreas: within normal limits. Spleen: within normal limits. Adrenals: within normal limits. Kidneys: Symmetric enhancement. No obstructive uropathy. Peritoneum: There are small pockets of extraluminal air which may represent postsurgical change. Ther e is a small amount of fluid in the anterior abdominal mesentery, measuring 3.5 x 3.5 cm. Fluid collection is not entirely well formed and is contiguous with the smaller air-fluid collection just s uperficial to the left abdominal rectus muscle measuring 3.2 x 1.6 cm. Additional pockets of air in the anterior abdominal subcutaneous fat along with phlegmonous change are noted. There is evidence of air tracking into the right abdominal rectus muscle as well as posterior to the right abdominal rectus muscle.. Additional fluid is noted at the cecal apex, tracking along the right paracolic gutte r. There is also evidence of air attenuation. The fluid at the level of the cecal apex is not well formed. Bowel: Limited evaluation due to the lack of oral contrast administration. No evidence of bowel obstr uction. Ileocecal junction is unremarkable. Findings compatible with previous appendectomy. Scattered fecal material in a nondistended, nondilated colon. Diverticulosis, without evidence of div erticulitis. Mesentery and Retroperitoneum: No enlarged mesenteric or retroperitoneal lymph nodes. Abdominal Wall: Postsurgical changes, air and phlegmon as described above. Pelvis: Reproductive Organs: Reproductive organs are unremarkable. Pelvis: No mass, lymphadenopathy, free air or free fluid. Bladder: within normal limits. Bones: within normal limits. IMPRESSION: 1. Findings compatible with recent appendectomy 2. There is fluid in the cecal apex and right paracolic gutter, complex. Fluid is not well formed to suggest a abscess at this time 3. There is ill-defined fluid deep to the abdominal rectus muscle which does appear to have a tract i s contiguous with the anterior abdominal subcutaneous fat. In the anterior abdominal subcutaneous fat, there are multiple pockets of air with phlegmon. There is a small air-fluid level which is magan guous with the a forementioned fluid collection just deep to the abdominal rectus muscles. Neither fluid collection as well formed to warrant percutaneous drainage. Consider general surgical consultat ion for debridement. 4. Pneumoperitoneum which is presumed to be post surgical. No obvious bile leak is appreciated at thi s time.
[2020-01-05 15:35] LABS: SARS-CoV-2 NAA Rapid Test Not Detected (NotDetected)
[2020-01-05] MEDS ORDERED: Iopamidol-370 76% 500 ML 1 ML ONE (16:19)
[2020-01-05] MEDS ORDERED: Iopamidol 370 76% 50 ML VIAL FS ONE (16:19)
[2020-01-05] MEDS ORDERED: Lidocaine 1% w/Epinephrine 1:100K 20 ML VIAL ONE (17:31)
[2020-01-05] MEDS ORDERED: Lactated Ringer's 1,000 ML IV SCH (17:45)
[2020-01-05] MEDS ORDERED: Ondansetron ODT 4 MG TAB SL PRN (17:45)
[2020-01-05] MEDS ORDERED: Ondansetron PF 4 MG/2 ML Vial IVP PRN ×2 (17:45→18:47)
[2020-01-05] MEDS ORDERED: Acetaminophen 325 MG TAB PO PRN (17:45)
[2020-01-05] MEDS ORDERED: Morphine 2 MG/ML VIAL SLOW IVP PRN (18:47)
[2020-01-05] MEDS ORDERED: Ondansetron ODT 4 MG TAB PO PRN (18:47)
[2020-01-05] MEDS ORDERED: hydrALAZINE 20 MG/ML VIAL SLOW IVP PRN (18:47)
[2020-01-05] MEDS ORDERED: Morphine 4 MG/ML VIAL SLOW IVP PRN (18:47)
[2020-01-05] MEDS ORDERED: traMADol HCl 50 MG TAB PO PRN (18:51)
[2020-01-05] MEDS ORDERED: Acetaminophen 500 MG TAB PO PRN (18:51)
[2020-01-05] MEDS ORDERED: Ketorolac Tromethamine 30 MG/ML VIAL IVP PRN (18:51)
[2020-01-05] MEDS ORDERED: Ketorolac Tromethamine 30 MG/ML VIAL IVP SCH (19:00)
[2020-01-05] MEDS: Famotidine 20 MG TAB PO SCH (20:15)
[2020-01-05] MEDS: Enoxaparin Sodium 40 MG/0.4 ML SYRINGE SC SCH (20:16)
--- NOTE | 2020-01-06 00:05 | HP ---
HISTORY OF PRESENT ILLNESS: Mk Valdez is a 44-year-old male patient, whom I saw from the emergency room for acute appendicitis undergoing 12/27/2019 laparoscopic video appendectomy for acute appendicitis. During removal of his appendix, his appendix fractured into two removing the fecalith, although there was no purulence. The two segments of appendix were removed through two separate bags to protect the wounds. The patient's abdominal cavity was thoroughly washed. Irrigant evacuated. Suprapubic fascia was approximated with 0 Vicryl using a granny needle as obesity prevented direct visualization of his fascia. The patient states postoperatively did fairly well, although the last three days has had increasing pain around the suprapubic area. He had fevers to 101.5 to 102 degrees. He called my office today reporting these findings late in the afternoon. The patient was given options accompanied to office today. CAT scan suggested, but he could not stand the pain anymore, so he presented to the emergency room. In the emergency room, he had a temperature of 100.3 degrees, white count of 21,000, hemoglobin 14. Basic metabolic profile normal. He underwent a CAT scan of the abdomen and pelvis revealing infectious changes in the suprapubic area. There is some pericecal fluid noted, but no organized abscess. These fluid collections thought to be postoperative in nature. The patient was started on antibiotics, admitted to the floor. He was given Zosyn 4.5 g. I visited him in the room and noted that his suprapubic area was fluctuant, red, and tender area of pain and incision and drainage recommended. ALLERGIES: NONE. TOBACCO: None. ALCOHOL: Rarely. MEDICATIONS: None routinely. PAST SURGICAL HISTORY: Left shoulder surgery. PAST MEDICAL HISTORY: Noncontributory otherwise. REVIEW OF SYSTEMS: Noncontributory. PHYSICAL EXAMINATION: GENERAL: The patient does farm and ranch work. VITAL SIGNS: 6 feet tall, 224 pounds, 31 BMI, 98.5, 104, 99% saturation. HEAD, EARS, EYES, NOSE AND THROAT: Unremarkable. LUNGS: Clear to auscultation. CARDIAC: Regular rate and rhythm without murmur or gallop. ABDOMEN: Soft, nontender. Suprapubic area reveals redness. There is fluctuance that is tender. ASSESSMENT/PLAN: Wound infection, suprapubic. We would recommend bedside drainage. Once I did drain this, copious amounts of foul-smelling purulent material and gas exuded. It was packed open and sent for culture. The patient's wound VAC will be applied and antibiotics continued. He will be observed. Job ID: [id number]
[2020-01-06] MEDS: Piperacillin/Tazobactam 4.5 GM in Sodium Chloride 0.9% 100 ML IVPB SCH ×5 (00:08→23:47)
[2020-01-06 05:51] LABS: #Eosinphils 0.1 thou/uL (0.0-0.7); #Monocytes 1.2 thou/uL (0.11-0.59); #Neutrophils 12.7 thou/uL (1.40-6.50); %Basophils 0.3 % (0.0-1.0); %Eosinophils 0.6 % (0.0-10.0); %Lymphocytes 12.3 % (21.0-51.0); %Monocytes 7.2 % (0.0-10.0); %Neutrophils 79.5 % (42.0-75.0); Hemoglobin 12.5 g/dL (14.0-18.0); Mean Corpuscular HGB CONC 32.1 g/dL (32.0-36.0); Mean Corpuscular Hemoglobin 28.8 pg (27.0-31.0); Mean Corpuscular Volume 89.5 fL (78.0-98.0); Platelet Count 279 thou/uL (130-400); RBC Distribution Width 11.9 % (11.5-14.5); Red Blood Cell (RBC) Count 4.36 mill/uL (4.70-6.10)
--- NOTE | 2020-01-06 07:02 | OP ---
DATE OF PROCEDURE: 01/05/2020 PREOPERATIVE DIAGNOSIS: Suprapubic wound infection post laparoscopic video appendectomy on 12/27/2019. POSTOPERATIVE DIAGNOSIS: Suprapubic wound infection post laparoscopic video appendectomy on 12/27/2019. PROCEDURE PERFORMED: Incision and drainage of suprapubic wound abscess. Culture submitted. Wound packed open. Copious amounts of foul-smelling purulent material and some gaseous material drained. ANESTHESIA: 1% Xylocaine with epinephrine mixed with 0.5% Marcaine with epinephrine. DESCRIPTION OF PROCEDURE: With the patient at bedside, suprapubic wound anesthetized with local anesthetic after an alcohol prep. Wound opened, and copious amounts of purulent foul-smelling material along with gas evacuated. Wound milked and debrided, and culture submitted. Wound packed open. The patient tolerated the procedure well. Job ID: [id number]
[2020-01-06] MEDS: Famotidine 20 MG TAB PO SCH ×2 (08:16→20:16)
[2020-01-06] MEDS: traMADol HCl 50 MG TAB PO PRN (12:05)
[2020-01-06 12:16] VITALS: BMI 29.7
--- NOTE | 2020-01-06 15:44 | PQF ---
CLINICAL DOCUMENTATION CLARIFICATION FORM: Dear Dr. Ruano Date: 01/06/20 Please exercise your independent, professional judgment in responding to the clarification form. Clinical indicators are provided on the bottom of this form for your review. Please check appropriate box(es) to clarify if the following diagnosis has been ruled in our ruled out: SEPSIS [ yes ] Ruled in diagnosis [ ] Continue to treat [ ] Resolved [ ] Ruled out diagnosis [ ] Improving [ ] Cannot rule out diagnosis [ ] Other diagnosis [ ] Unable to determine In addition, please specify: Present on Admission (POA): [ yes ] Yes [ ] No [ ] Unable to determine For continuity of documentation, please document condition throughout progress notes and discharge summary. Thank You. ER NOTE: "SEPSIS" PULSE 125 RR 28 WBC 01/04: 21.4 RISKS: LAP APPENDECTOMY 12/26 (H&P- SHASHI) H&P: "THE LAST THREE DAYS HAS HAD INCREASING PAIN AROUND THE SUPRAPUBIC AREA. HE HAD FEVERS TO 101.5 TO 102 DEGREES." TREATMENT: IV ZOSYN (ER-PRESENT) IV FLUIDS (ER) CULTURES OF BLOOD, ABDOMINAL ABSCESS AND STOOL 01/04 CDS Signature: Kristina Goddard RN Phone #: [phone] Date: 01/06/20 PEDRO
--- NOTE | 2020-01-06 16:55 | PRG ---
DATE OF SERVICE: 01/06/2020 SUBJECTIVE: Mr. Valdez is doing well today. He has been afebrile since drainage of his abscess. His white count is improved. He feels much better. He is tolerating his diet. OBJECTIVE: VITAL SIGNS: Temperature 98.1, pulse 70, blood pressure 112/72. LUNGS: Clear to auscultation. CARDIAC: Regular rate and rhythm. No murmur or gallop. ABDOMEN: Soft and nontender. LABORATORY DATA: White count of 16, down from 21. Differential is unremarkable. Blood cultures negative to date. C diff from his stools are antigen and toxin negative. Bacterial culture from his wound reveals many gram-negative rods. ASSESSMENT AND RECOMMENDATIONS: A wound VAC has been applied to his wound. I reviewed the wound. It looks much better. The redness is improving. At this point, we would recommend continuing the intravenous antibiotics, wound VAC application, arrangements for outpatient wound VAC care, and anticipate discharge home on Friday, tomorrow, on oral antibiotics. Job ID: [id number]
[2020-01-06] MEDS: Enoxaparin Sodium 40 MG/0.4 ML SYRINGE SC SCH (20:15)
[2020-01-07] MEDS: Piperacillin/Tazobactam 4.5 GM in Sodium Chloride 0.9% 100 ML IVPB SCH ×2 (05:20→11:27)
[2020-01-07] MEDS: traMADol HCl 50 MG TAB PO PRN (06:23)
[2020-01-07] MEDS: Famotidine 20 MG TAB PO SCH (08:01)
[2020-01-07 11:24] VITALS: BP 113/76; TEMP 98
[2020-01-07] MEDS ORDERED: Amoxicillin/Potassium Clav 875 MG TAB PO SCH ×2 (11:30→21:00)
--- NOTE | 2020-01-08 02:29 | DIS ---
DATE OF ADMISSION: 01/05/2020 DATE OF DISCHARGE: 01/07/2020 DISCHARGE DIAGNOSIS: Sepsis, wound infection postappendectomy 10 days prior. PROCEDURES DONE DURING THIS HOSPITALIZATION: Bedside drainage of abscess, culture performed draining copious purulent material with gas within the wound. Cultures revealed gram-negative rods and gram-positive cocci. DISCHARGE MEDICATIONS: Augmentin 875 p.o. b.i.d. seven days. DISCHARGE INSTRUCTIONS: Outpatient wound care. architectural manager arranged appointment at [facility] next week. Follow up in my office in a week and a half. Tylenol, Advil for pain. Ultram as needed. Stool Clostridium difficile negative as he complained of some loose stools. HISTORY: A 44-year-old male patient status post laparoscopic video appendectomy. His appendix fractured at the time of surgery, although no purulence was noted. Fecalith was retrieved, removed two segments of the appendix in a separate endobag to protect the wound. Postoperatively, he states he developed burning pain in his suprapubic incision, called my office, could not wait to be seen, presented to the emergency room, undergoing a CAT scan which was unremarkable, except for postoperative findings and also fluid collection suprapubic. Clinical exam revealed this area to be red. His white count was 22,000 with a left shift. At the patient's bedside under local this was drained. Culture submitted. Wound VAC arranged. Patient has been discharged home now with above measures. Job ID: [id number]
--- NOTE | 2020-01-10 13:12 | PQF ---
CLINICAL DOCUMENTATION CLARIFICATION FORM: Dear : Carlos Ruano MD Date / Time: 01/10/2020 Please exercise your independent, professional judgment in responding to the clarification form. Clinical indicators are provided on the bottom of this form for your review Please check appropriate box(es): [ ] Excisional Debridement: [ ] Excised [ ] Cut away [ ] Other: Depth / layer: (deepest layer of debridement): [ ] Skin [ ] Subcutaneous [ ] Fascia [ ] Muscle [ ] Tendon [ ] Bone Appearance of wound: (e.g., down to fresh bleeding tissue, etc.) Margins: (please specify): / x x Instruments used: [ ] Scissors [ ] Scalpel [ ] Other: [ ] Non-excisional Debridement: (Removal by ?ushing, brushing, chemical, or washing) Depth / layer: (deepest layer of debridement): [ ] Skin [ ] Subcutaneous [ ] Fascia [ ] Muscle [ ] Tendon [ ] Bone [ ] Incision and Drainage only (No Debridement): Depth: [ yes ] Skin [ yes ] Subcutaneous [ ] Fascia [ ] Muscle [ ] Tendon [ ] Bone [ ] Escharectomy [ ] Other procedure diagnosis (Please specify if any) [ ] Unable to determine Physician Signature: Date/Time: For continuity of documentation, please document condition throughout progress notes and discharge summary. Thank You. To be completed by CDI/Coding staff for physician review: Present Clinical Indicators - Signs / Symptoms / Labs Results and Location in Medical Record [ x ] I&D of suprapubic wound abscess Op note on 01/04 [ x ] Suprapubic wound infection Op note on 01/04 [ X ] Wound milked and debrided, and culture submitted Op note on 01/04 [ x ] Cultured submitted. Wound packed open. Copious amount of foul smelling purulent material and some gaseous material drained Op note on 01/04 Present Risk Factors Results and Location in Medical Record [ ] Bedridden/Immobile patient [ x] Suprapubic wound infection Op note on 01/04 [ ] [ ] Present Treatments Results and Location in Medical Record [ x ] I&D of suprapubic wound abscess Op note on 01/04 [ x ] We would recommend continuing the intravenous antibiotics, wound Vac application, arrangements for OP wound VAC care Progress notes on 01/05 [ ] [ ] CDS/Stock Roller Signature: AAS Phone #: Date/Time: 01/10/2020 This is a permanent part of the Medical Record [facility]
[2020-01-10] MEDS ORDERED: Ibuprofen 600 MG TAB PO PRN (23:00)
== END 2020-01-07 12:45 | disposition home or self-care (01) | DRG 856 ==
LOC: ERS 12:23 → SURG A 13:49
PROVIDERS: ADMIT Specialist; ATTEND Specialist
PROC: 0J9C0ZZ Drainage of Pelvic Region Subcutaneous Tissue and Fascia, Open Approach (ICD-10-PCS; principal; 2020-01-05)
DX: T81.49XA Infection following a procedure, other surgical site, initial encounter (principal); A41.9 Sepsis, unspecified organism; Y83.9 Surgical procedure, unspecified as the cause of abnormal reaction of the patient, or of later complication, without mention of misadventure at the time of the procedure
CPT/HCPCS: 36415; 71045; 74177; 80053; 83605; 85025; 87040; 87070; 87077; 87186; 87205; 87324; 87449; 93005; 96361; 96365; 96375; 96376; J1650; J1885; J2543; J3010; J3490; Q9967; U0002

== ENCOUNTER 2020-03-16 08:07 | Outpatient (CLI) | payer OTHER ==
--- NOTE | 2020-03-16 09:21 | MRI ---
MR of the right shoulder without contrast INDICATION: Right shoulder pain. Right shoulder pain for 3 to 4 weeks TECHNIQUE: Sagittal T1, axial and coronal PD fat sat, sagittal and coronal T2 fat sat images were obt ained of the right shoulder. COMPARISON: None. FINDINGS: Rotator cuff: There is a high-grade partial thickness articular surface tear involving the mid to pos terior supraspinatus at the footprint measuring 0.9 x 1.2 cm in its greatest mediolateral and AP dimensions respectively. There is mild tendinosis of the supraspinatus and infraspinatus. There is no rotator cuff muscular atrophy. Glenohumeral joint: Articular cartilage is intact. Glenoid labrum: Intact Biceps tendon and biceps anchor: Intact and located. Acromion clavicular joint: There is mild AC joint hypertrophy. Subacromial subdeltoid space: No appreciable fluid. Axillary region: No lymphadenopathy. Surrounding shoulder musculature: Normal. No evidence of atrophy or strain. IMPRESSION: 1. High-grade partial thickness articular surface tear of the mid to posterior supraspinatus. 2. Mild supraspinatus and infraspinatus tendinosis.
== END 2020-03-16 08:08 | disposition home or self-care (01) ==
LOC: BICMRI 08:07
PROVIDERS: ATTEND Orthopaedic Surgery
DX: M25.511 Pain in right shoulder (principal); M75.111 Incomplete rotator cuff tear or rupture of right shoulder, not specified as traumatic; M77.8 Other enthesopathies, not elsewhere classified

== ENCOUNTER 2024-03-08 09:20 | Outpatient (CLI) | payer BC | END 2024-03-08 09:21 | disposition home or self-care (01) | LOC: CT 09:20 | PROVIDERS: ATTEND Specialist | DX: I65.01 Occlusion and stenosis of right vertebral artery (principal) | CPT/HCPCS: 70498 ==

== ENCOUNTER 2024-03-09 09:01 | Outpatient (CLI) | payer BC | END 2024-03-09 09:02 | disposition home or self-care (01) | LOC: CT 09:01 | PROVIDERS: ATTEND Student in an Organized Health Care Education/Training Program | DX: I65.01 Occlusion and stenosis of right vertebral artery (principal); G93.89 Other specified disorders of brain | CPT/HCPCS: 70496 ==